=== PATIENT | male | born 1980 | race Hispanic/Latino ===

== ENCOUNTER 2019-05-20 15:09 | Emergency (ER) | payer MEDICARE, MEDICAID ==
[2019-05-20] MEDS ORDERED: HYDROCODONE/ACETAMINOPHEN 10/325 MG TAB ONE (15:34)
[2019-05-20] MEDS ORDERED: TETANUS/DIPHTHERIA TOXOID [ADULT] 0.5 ML VIAL IM ONE (15:35)
== END 2019-05-20 17:52 | disposition home or self-care (01) ==
LOC: EDH 15:09
DX: S82.832A Other fracture of upper and lower end of left fibula, initial encounter for closed fracture (principal); S92.332A Displaced fracture of third metatarsal bone, left foot, initial encounter for closed fracture; S62.395A Other fracture of fourth metacarpal bone, left hand, initial encounter for closed fracture; S20.212A Contusion of left front wall of thorax, initial encounter; S80.02XA Contusion of left knee, initial encounter; I10 Essential (primary) hypertension; E11.9 Type 2 diabetes mellitus without complications; E78.00 Pure hypercholesterolemia, unspecified; W18.39XA Other fall on same level, initial encounter; Y93.89 Activity, other specified; Y92.89 Other specified places as the place of occurrence of the external cause; Y99.8 Other external cause status
CPT/HCPCS: 71045; 71120; 73562; 73610; 73630; 90471; 90714; 93005

== ENCOUNTER 2019-12-16 19:30 | Emergency (ER) | payer MEDICARE ==
[2019-12-16] MEDS ORDERED: PENICILLIN V POTASSIUM 500 MG TABLET ONE (20:04)
[2019-12-16] MEDS ORDERED: TRAMADOL HCL 50 MG TABLET ONE (20:04)
== END 2019-12-16 20:25 | disposition home or self-care (01) ==
LOC: EDH 19:30
DX: K04.7 Periapical abscess without sinus (principal); E11.9 Type 2 diabetes mellitus without complications; I10 Essential (primary) hypertension; E78.00 Pure hypercholesterolemia, unspecified

== ENCOUNTER 2023-09-17 13:40 | Emergency (ER) | payer MEDICARE ==
[~2023-09-17] VITALS: Ht 182.9 cm; Wt 129.3 kg
[2023-09-17] MEDS ORDERED: IBUPROFEN 800 MG TAB PO ONE (15:00)
[2023-09-17] MEDS ORDERED: DICL20GE TP (18:42)
[2023-09-17 19:08] VITALS: BP 152/94; PULSE 78; RESP 18; O2SAT 97
== END 2023-09-17 19:14 | disposition home or self-care (01) ==
LOC: EDH 13:40
DX: S92.312A Displaced fracture of first metatarsal bone, left foot, initial encounter for closed fracture (principal); S93.402A Sprain of unspecified ligament of left ankle, initial encounter; E11.9 Type 2 diabetes mellitus without complications; E78.00 Pure hypercholesterolemia, unspecified; I10 Essential (primary) hypertension; M19.90 Unspecified osteoarthritis, unspecified site; W01.0XXA Fall on same level from slipping, tripping and stumbling without subsequent striking against object, initial encounter; Y93.01 Activity, walking, marching and hiking; Y92.89 Other specified places as the place of occurrence of the external cause; Y99.8 Other external cause status
CPT/HCPCS: 73610; 73630